=== PATIENT | male | born 1980 | race Caucasian/White ===

== ENCOUNTER 2024-02-02 13:29 | Inpatient (IN) ==
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
--- NOTE | 2024-02-02 14:37 | XRay Report ---
XR chest 1V portable CLINICAL HISTORY: weakness COMPARISON STUDY: Chest radiograph December 09, 2006. FINDINGS: Lung volumes are normal. Lungs are clear. There is no pneumothorax or pleural effusion. Car diac size is normal. Mediastinal contours are normal. There is no evidence for pulmonary edema. IMPRESSION: No acute cardiopulmonary findings. ACT 112: Negative or not required by law. Electronically signed by: Alban Dickey M.D. 02/02/2024 2:36 PM
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
[2024-02-02] MEDS: SODIUM CHLORIDE 0.9% 1,000 ML IV SCH (14:44)
[2024-02-02 14:54] LABS: Basophils # (auto) 0.04 K/uL (0.00-0.20); Basophils % (auto) 0.5 %; Eosinophils # (auto) 0.25 K/uL (0.00-0.50); Eosinophils % (auto) 2.9 %; Hemoglobin 14.7 g/dl (14.0-18.0); Immature Granulocytes # (auto) 0.02 K/uL (0.01-0.20); Immature Granulocytes % (auto) 0.2 %; Lymphocytes # (auto) 0.99 K/uL (1.20-3.40); Lymphocytes % (auto) 11.3 %; Mean Corpuscular Hemoglobin 30.9 pg (25.0-34.0); Mean Corpuscular Hgb Conc 35.9 g/dL (32.0-36.0); Mean Corpuscular Volume 86.3 fL (80.0-100.0); Mean Platelet Volume 9.5 fL (9.4-12.4); Monocytes # (auto) 0.63 K/uL (0.11-0.59); Monocytes % (auto) 7.2 %; Neutrophils # (auto) 6.84 K/uL (1.40-6.50); Neutrophils % (auto) 77.9 %; Platelet Count 244 K/uL (130-400); RDW Coefficient of Variation 12.2 % (11.5-14.5); RDW Standard Deviation 38.4 fL (36.4-46.3); Red Blood Count 4.75 M/uL (4.70-6.10); White Blood Count 8.77 K/ul (4.8-10.8)
[2024-02-02 15:12] LABS: Albumin Globulin Ratio 1.7 (0.9-2); Albumin Level 4.3 gm/dl (3.4-5.0); BUN Creatinine Ratio 23.8 (10-20); Bilirubin,Total 0.6 mg/dl (0.2-1.0); Calcium 9.1 mg/dl (8.6-10.3); Creatinine Clr Calc Pharmacy 120.4 ml/min; Est GFR (Non-African American) 107.9 ml/min; Globulin 2.5 gm/dl (2.5-4.0); Total Protein 6.8 gm/dl (6.0-8.3)
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
[2024-02-02 15:25] LABS: Troponin I High Sensitivity 61.4 pg/ml (0-20)
[2024-02-02 15:27] LABS: Thyroid Stimulating Hormone 1.199 uIu/ml (0.300-4.500)
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
[2024-02-02] MEDS: LACTATED RINGER'S 1,000 ML IV SCH (17:31)
[2024-02-02] MEDS: MoRPHine SULFATE 4 MG/ML 1 ML CARP\\VIAL IV STA (17:31)
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
--- OUTSIDE RECORDS SUMMARY | 2024-02-02 18:00 | External Medical Summary | Summary of Care ---
Author Name Unknown Organization [facility] Address [address] [place] [address] Phone [phone] Care Team Providers Care Glass Cut Off Tender Name Role Phone JuanisHank Stephanie LORENZO Primary Care Provider [phone] Encounter Details Date Type Department Care Team (Late st Contact Info) Description 01/03/2024 Orders Only Outcomes Research Department [address] [place] [address] Catarina Woods [employer] Research Other*[id number] Allergies No known active allergiesdocumented as of this encounter (statuses as of 01/03/2024) Medications Medication Sig Dispensed Refills Start Date End Date Status Fluticasone Propionate 50 MCG/ACT Nasal SuspensionIndications :Acute URI,Suspected COVID-19 virus infection,Dysphagia, unspecified type,Gastroesophageal reflux disease without esophagitis Administer 2 Sprays into each nostril daily. 1 Each 0 08/19/2021 Active Loratadine 10 MG Oral Tablet Take 1 Tablet by mouth in the morning. 0 Active documented as of this encounter (statuses as of 01/03/2024) Active Problems Problem Noted Date Diagnosed Date Pilonidal cyst 07/27/2012 Migraine with aura, intractable 01/12/2006 Congenital aortic valve insufficiency 04/25/2003 BE prophylaxis required 04/25/2003 Whmfh-Rcnfuednz-Kqsbi syndrome 04/25/2003 documented as of this encounter (statuses as of 01/03/2024) Immunizations Name Administration Dates Next Due HEP [...] on file documented as of this encounter Plan of Treatment Upcoming Encounters Date Type Department Care Team (Latest Contact Info) Description 02/16/2024 8:00 AM EDT Hospital Encounter ENDO [facility], Endoscopy Room [facility] [address] [phone] Roberta Craig MD [address] [address] 02/16/2024 8:00 AM EDT - 02/16/2024 8:30 AM EDT Surgery ENDO [facility], Endoscopy Room [facility] [address] [phone] Roberta Craig MD [address] [address] COLONOSCOPY FLEXIBLE PROXIMAL DIAGNOSTIC 07/28/2024 8:30 AM EDT Cardiac Studies Cardiac Studies, [facility] [address] [address] Scheduled Orders Name Type Priority Associated Diagnoses Orde r Schedule MYCODE SUBSEQUENT ADULT Lab Routine [employer] Research Other*[id number] Every 6 Months for 2 Occurrences starting 01/03/2024 until 01/22/2025 Scheduled Procedures Name Priority Associated Diagnoses Date/Ti me COLONOSCOPY FLEXIBLE PROXIMAL DIAGNOSTIC Recall Special screening for malignant neoplasms, colon 02/16/2024 8:00 AM EDT Health Maintenance Due Date Last Done Comments HIV Screening 1993 Hepatitis C Screening 1996 Diabetes Screening 09/18/2022 09/18/2019, 04/08/2009 Cologuard 2023 Colonoscopy 2023 Colorectal Cancer Screening 2023 Fecal Occult Blood Test 2023 Sigmoidoscopy 2023 COVID-19 Vaccine ( season) 2023 Influenza Vaccine (FLU shot) (#1) 2023 [...] Not on filedocumented as of this encounter Visit Diagnoses Diagnosis [employer] Research Other*[id number] Special screening for malignant neoplasms, colon documented in this encounter Care Teams Glass Cut Off Tender Relationship Specialty Start Date End Date Hank Olivarez DO [address] [place] [address] PCP - General Family Medicine 1/18/17 documented as of this encounter
--- OUTSIDE RECORDS SUMMARY | 2024-02-02 18:00 | External Medical Summary | Summary of Care ---
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 Bicuspid aortic valve Procedures ECHO, COMPLETE (2D), TRANS-THORACIC Jose Alfredo Francois DO [address] [place] [address] Referral ID Status Reason Start Date Expiration Date Visits Requested Visits Authorized [id number] Pending Review Precert 03/15/[phone] Reason for Visit * Reason Comments Follow Up * Evaluate & Treat - Unlimited Visits (Within 30 days (routine)) - Pending Review Specialty Diagnoses / Procedures Referred By Contact Referred To Contact Cardiovascular Medicine / Cardiology Diagnoses 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 Hank Olivarez DO [address] [facility] [place] [address] Referral ID Status Reason Start Date Expiration Date Visits Requested Visits Authorized [id number] Pending Review Specialty Services Required 3 [phone] Encounter Details Date Type Department Care Team (Late st Contact Info) Description 09/14/2023 8:30 AM EST Office Visit Cardiology, [facility] [address] [place] [address] Jose Alfredo Francois DO [address] [place] [address] Congenital aortic valve insufficiency*; Ozmmt-Ifjmaxtni-Idllb syndrome; Bicuspid aortic valve Allergies No known active allergiesdocumented as of this encounter (statuses as of 09/14/2023) Medications Medication Sig Dispensed Refills Start Date End Date Status Fluticasone Propionate 50 MCG/ACT Nasal SuspensionIndications :Acute URI,Suspected COVID-19 virus infection,Dysphagia, unspecified type,Gastroesophageal reflux disease without esophagitis Administer 2 Sprays into each nostril daily. 1 Each 0 08/19/2021 Active Loratadine 10 MG Oral Tablet Take 1 Tablet by mouth in the morning. 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 documented as of this encounter (statuses as of 09/14/2023) Immunizations Name Administration Dates Next Due HEP [...] Sign Reading Time Taken Comments Blood Pressure 98/64 09/14/2023 8:30 AM EST Pulse - - Temperature - - Respiratory Rate 16 09/14/2023 8:30 AM EST Oxygen Saturation - - Inhaled Oxygen Concentration - - Weight 87.5 kg (193 lb) 09/14/2023 8:30 AM EST Height - - Body Mass Index 27.69 09/11/2023 1:21 PM EST documented in this encounter Progress Notes * Jose Alfredo Francois, DO - 09/14/2023 8:53 AM EST Cardiology Outpatient Follow-up Alban Mcneill is a 43 year old male who is seen for follow-up of valvular heart disease. HPI: This is a 43-year-old male patient with history of a congenital bicuspid aortic valve with aortic insufficiency. He also has a rate-related EKG that shows Lxqyl-Qkwthhzox-Sqdsm although he has not had a history of any significant arrhythmias. Returned today for follow-up. In general things are going well. He denies dizziness or lightheadedness. He has had no chest pain or heart palpitations. No progressive shortness of breath or orthopnea. Past Medical History: Diagnosis Date Congenital aortic valve insufficiency need BE prophylaxsis, bicupsid aortic valve, AI and Varicella without complication age 4 Blysl-Onpthnpdp-Vwndq syndrome life long given a medical deferment and not permitted to enlist Patient Active Problem List Diagnosis Code Congenital aortic valve insufficiency Q23.1 BE prophylaxis required Z23 Yfgvw-Wofiffffv-Oissa syndrome I45.6 Migraine with aura, intractable G43.119 Pilonidal cyst L05.91 Past Surgical History: Procedure Laterality Date ECHOCARDIOLOGY UNSPEC PROC 05/02/2006 bicupsid aortic valve, 3+ AI, 1+ , no LVH EGD, FLEXIBLE, DIAGNOSTIC 09/25/2021 erosive esophagitis, repeat 8 wks / ESOPHAGOGASTRODUODENOSCOPY (EGD), FLEXIBLE, TRANSORAL, DIAGNOSTIC performed by Clotilde Foster DO at END[facility]COPY [facility] EGD, FLEXIBLE, DIAGNOSTIC 11/27/2021 healed esophagitis / ESOPHAGOGASTRODUODENOSCOPY (EGD), FLEXIBLE, TRANSORAL, DIAGNOSTIC performed byClotilde Foster DO at [facility]COPY [facility] STRESS ECHO (EXERCISE) 07/12/2007 normal response to exercise, EF 65% Family History Problem Relation Age of Onset No Past Hx Mother No Past Hx Father Arthritis Grandmother (Maternal) Diabetes Grandmother (Maternal) Heart Disorder Grandfather (Paternal) Arthritis Grandfather (Maternal) Cancer Grandfather (Maternal) leukemia No Past Hx Sister No Past Hx Sister No Past Hx Brother No Past Hx Son Social History Tobacco Use Smoking status: Never Smokeless tobacco: Never Vaping Use Vaping Use: Never used Substance Use Topics Alcohol use: Yes Comment: rare Drug use: No Review of patient's allergies indicates: No Known Allergies Current Outpatient Medications Medication Sig Dispense Refill Fluticasone Propionate 50 MCG/ACT Nasal Suspension Administer 2 Sprays into each nostril daily. 1 Each 0 Loratadine 10 MG Oral Tablet Take 1 Tablet by mouth in the morning. No current facility-administered medications for this visit. ROS: Review of Systems: See HPI for pertinent positives. All other review of systems is negative. PHYSICAL EXAMINATION BP 98/64 | Resp 16 | Wt 87.5 kg (193 lb) | BMI 27.69 kg/m | BSA 2.08 m Body mass index is 27.69 kg/m. General: no acute distress and stated age Head: normocephalic, no masses, lesions, tenderness or abnormalities Eyes: conjunctiva are pink and non-injected, sclera clear Neck: supple, no adenopathy, no bruits, normal jugular venous pulse, no hepatojugular reflux Chest: normal shape and normal respiratory effort Lungs: clear to auscultation and percussion Cardiac Exam: - regular rate & rhythm, diastolic heart murmur - normal S1, normal S2 Pulses: 2(+) throughout Abdomen: abdomen soft, non-tender, no abnormal masses and no hepatosplenomegaly Musculoskeletal: no gait disturbance, no joint inflammation, no deforming arthritis Extremities: no edema and no cyanosis Neuro: grossly normal exam Laboratory Data Review: EKG today reveals a sinus rhythm and is within normal limits Impression: 1. Bicuspid aortic valve with moderate to severe aortic insufficiency unchanged from the prior study July, 2. History of intermittent Thqce-Shhyqcccs-Yrnmc on previous EKGs without significant tachycardia or arrhythmias Plan: The patient is doing well clinically. At this point we will see him on an annual or as-needed basis. Prior to his next visit however, I have asked that he have a follow-up echocardiogram to evaluate his aortic insufficiency. This chart was completed in part utilizing [employer] Speech Voice Recognition Software. Grammatical errors, random word insertions, prounoun errors, and incomplete sentences are an occasional consequence of this system due to software limitations, ambient noise, and hardware issues. Any formal questions or concerns about the content, text, or information contained within the body of this dictation should be directly addressed to the provider for clarification. I spent a total of 30-39 minutes (exact time 36 mins) on the date of service in preparation, delivery, and documentation of the care provided to Alban Mcneill excluding any time spent in the performance of separately billed services. Jose Alfredo Francois DO [place] [address] 09/14/2023 documented in this encounter Procedure Notes * Rodriguez Jaimes MD - 09/14/2023 8:38 AM ESTAssociated Order(s): EKG COMPLETE (TRACING AND INTERP) REASON FOR STUDY: WPW; congenital aortic insuff CONCLUSIONS: Normal sinus rhythm Normal ECG When compared with ECG of 16-DEC-2021 09:28, No significant change was found Ventricular Rate: 70 Atrial Rate: 70 MS Interval: 160 QRS Duration: 90 QT/QTc: 372/401 ms P-R-T [place]: 74 : 74 : 46 degrees documented in this encounter Nursing Notes * Govind Duque RN - 09/14/2023 8:29 AM EST Examination Room: room 16 Name: Alban Mcneill Date of : (1980). Reason for Visit: for follow up Interim Hospitalization(s): denies Problems/Concerns: denies Chest Pain/SOB: denies [facility] Discussed: Not applicable [facility] is a way you can talk to your provider online through e-mail. Would you like to sign up? I can activate it for you? NO INTERNET ACCESS Patient was instructed to not get up on the exam table until directed and assisted by their provider; patient is to remain seated in the chair/ wheelchair/ exam table for fall prevention and safety reasons. Patient is aware to have assistance to step down off exam table with personnel. Patient voiced full comprehension of instructions. documented in this encounter Plan of Treatment Upcoming Encounters Date Type Department Care Team (Late st Contact Info) Description 07/28/2024 8:30 AM EDT Cardiac Studies Cardiac Studies, [address] [place] [address] Scheduled Orders Name Type Priority Associated Diagnoses Orde r Schedule ECHO, COMPLETE (2D), TRANS-THORACIC Echocardiology Routine Rhrtw-Zetkwezxx-Xwvmw syndrome Congenital aortic valve insufficiency Bicuspid aortic valve Expected: 03/15/2024, Expires: 09/14/2024 Scheduled Procedures Name Priority Associated Diagnoses Date/Ti me COLONOSCOPY FLEXIBLE PROXIMA L DIAGNOSTIC Recall Special screening for malignant neoplasms, colon Health Maintenance Due Date Last Done Comments [...] Procedure Name Priority Date/Time Associated Diagnosis Comments MS ECG ROUTINE ECG W/LEAST 12 LDS W/I&R Routine 09/14/2023 8:38 AM EST Inilt-Znghfnypi-Xlpbs syndrome Congenital aortic valve insufficiency documented in this encounter Results * EKG COMPLETE (TRACING AND INTERP) (09/14/2023 8:38 AM EST) 09/14/2023 8:38 AM EST Narrative Procedure Note Rodriguez Jaimes MD - 09/14/2023 8:38 AM EST REASON FOR STUDY: WPW; congenital aortic insuff CONCLUSIONS: Normal sinus rhythm Normal ECG When compared with ECG of 16-DEC-2021 09:28, No significant change was found Ventricular Rate: 70 Atrial Rate: 70 MS Interval: 160 QRS Duration: 90 QT/QTc: 372/401 ms P-R-T [place]: 74 : 74 : 46 degrees Jose Alfredo Francois DO EKG [facility] documented in this encounter Visit Diagnoses Diagnosis Congenital aortic valve insufficiency- Primary Congenital insufficiency of aortic valve Ystpp-Iktqtknix-Yjmqa syndrome Anomalous atrioventricular excitation Bicuspid aortic valve Congenital insufficiency of aortic valve documented in this encounter Care Teams Maintenance Chief Relationship Specialty Start Date End Date Hank Olivarez DO [address] [facility] [place] [address] PCP - General Family Medicine 10/14/16 documented as of this encounter"
--- OUTSIDE RECORDS SUMMARY | 2024-02-02 18:00 | External Medical Summary | Summary of Care ---
Author Name Unknown Organization [facility] Address [address] [place] [address] Phone [phone] Care Team Providers Care Forklift Picker Name Role Phone Juanis Hank Stephanie LORENZO Primary Care Provider [phone] Encounter Details Date Type Department Care Team (Late st Contact Info) Description 09/06/2023 Telephone OR [facility], Operating Room [facility] [address] [place] [phone] Kendy Ghosh MD [address] [place] [address] Allergies No known active allergiesdocumented as of this encounter (statuses as of 12/06/2023) Medications Medication Sig Dispensed Refills Start Date End Date Status Fluticasone Propionate 50 MCG/ACT Nasal SuspensionIndications :Acute URI,Suspected COVID-19 virus infection,Dysphagia, unspecified type,Gastroesophageal reflux disease without esophagitis Administer 2 Sprays into each nostril daily. 1 Each 0 08/19/2021 Active Loratadine 10 MG Oral Tablet Take 1 Tablet by mouth in the morning. 0 Active documented as of this encounter (statuses as of 12/06/2023) Active Problems Problem Noted Date Diagnosed Date Pilonidal cyst 07/27/2012 Migraine with aura, intractable 01/12/2006 Congenital aortic valve insufficiency 04/25/2003 BE prophylaxis required 04/25/2003 Tvqsa-Lhajehoon-Peczp syndrome 04/25/2003 documented as of this encounter (statuses as of 12/06/2023) Immunizations Name Administration Dates Next Due HEP [...] money to buy more. Never true 12/31/19 Within the past 12 months, t he [...] on file documented as of this encounter Miscellaneous Notes * Telephone Encounter - Cecilia Romeo RN - 09/06/2023 7:39 AM EST This patient is scheduled for colonoscopy on 09-07-[address] Ghosh patient will need followup with cardiology and repeat echo prior to procedure .patient called and left message on Opt[employer]that the colonoscopy for tomorrow will need to be rescheduled until after cardiology clearance and echo. Patient given number to return call to reschedule /GI schedulers made aware documented in this encounter Plan of Treatment Upcoming Encounters Date Type Department Care Team (Late st Contact Info) Description 07/28/2024 8:30 AM EDT Cardiac Studies Cardiac Studies, [address] [place] [address] Scheduled Procedures Name Priority Associated Diagnoses Date/Ti me COLONOSCOPY FLEXIBLE PROXIMA L DIAGNOSTIC Recall Special screening for malignant neoplasms, colon Health Maintenance Due Date Last Done Comments HIV Screening 1993 Hepatitis C Screening 1996 Diabetes Screening 09/18/2022 09/18/2019, 04/08/2009 Cologuard 2023 Colonoscopy 2023 Colorectal Cancer Screening 2023 Fecal Occult Blood Test 2023 Sigmoidoscopy 2023 COVID-19 Vaccine (1 - 2022- season) 2023 Influenza Vaccine (FLU shot) (#1) 2023 06/15/2012 Depression Screening 12/31/2023 12/30/2022 Lipid Panel 09/18/2024 09/18/2019, 04/08/2009 DTaP,Tdap,and Td Vaccines (7 - Td or Tdap) 04/23/2033 04/23/2023, 03/11/2011, 06/02/2003, Additional history exists Hepatitis B Completed 06/15/2012, 0509/1994, 07/16/1993 GARDASIL-HPV IMMUNIZATION SERIES Aged Out No [...] Not on filedocumented as of this encounter Care Teams Forklift Picker Relationship Specialty Start Date End Date Hank Olivarez DO [address] [place], [place] [address] PCP - General Family Medicine 10/14/16 documented as of this encounter
--- OUTSIDE RECORDS SUMMARY | 2024-02-02 18:00 | External Medical Summary | Summary of Care ---
Author Name Unknown Organization [facility] Address [address] [place] [address] Phone [phone] Care Team Providers Care Payroll Representative Name Role Phone Hank Olivarez DO Primary Care Provider [phone] Reason for Referral * Precert (Within 10 days (routine)) - Pending Review Specialty Diagnoses / Procedures Referred By Contac t Referred To Contact Cardiac Studies Diagnoses Bdjjw-Mzuteduow-Mwytv syndrome Congenital aortic valve insufficiency Bicuspid aortic valve Procedures ECHO, COMPLETE (2D), TRANS-THORACIC Jose Alfredo Francois DO [address] [place] [address] Referral ID Status Reason Start Date Expiration Date Visits Requested Visits Authorized [id number] Pending Review Precert 03/15/[phone] Reason for Visit * Reason Comments Follow Up * Evaluate & Treat - Unlimited Visits (Within 30 days (routine)) - Pending Review Specialty Diagnoses / Procedures Referred By Contact Referred To Contact Cardiovascular Medicine / Cardiology Diagnoses Congenital aortic valve insufficiency Ddqpt-Osclpvsfv-Nmojd syndrome Hank Olivarez DO [address] [facility] [place] [address] Referral ID Status Reason Start Date Expiration Date Visits Requested Visits Authorized [id number] Pending Review Specialty Services Required 3 [phone] Encounter Details Date Type Department Care Team (Late st Contact Info) Description 09/14/2023 8:30 AM EST Office Visit Cardiology, [facility] [address] [place] [address] Jose Alfredo Francois DO [address] [place] [address] Congenital aortic valve insufficiency*; Gtfsq-Inxarotjk-Pedfu syndrome; Bicuspid aortic valve Allergies No known [...] valve insufficiency 04/25/2003 BE prophylaxis required 04/25/2003 Tfusa-Soimjzjnw-Hvujt syndrome 04/25/2003 documented as of this encounter [...] also has a rate-related EKG that shows Iencw-Sqcslsoge-Etwfl although he has not had a history [...] AI and Varicella without complication age 4 Rweyn-Mlrgtntps-Mkztg syndrome life long given a medical deferment and not permitted to enlist Patient Active Problem List Diagnosis Code Congenital aortic valve insufficiency Q23.1 BE prophylaxis required Z23 Rjgjy-Sffpoabkm-Rjitp syndrome I45.6 Migraine with aura, intractable G43.119 Pilonidal cyst L05.91 Past Surgical History: Procedure Laterality Date ECHOCARDIOLOGY UNSPEC PROC 05/02/2006 bicupsid aortic valve, 3+ AI, 1+ , no LVH EGD, FLEXIBLE, DIAGNOSTIC 09/25/2021 erosive esophagitis, repeat 8 wks / ESOPHAGOGASTRODUODENOSCOPY (EGD), FLEXIBLE, TRANSORAL, DIAGNOSTIC performed by Clotilde Foster DO at ENDOSCOPY [facility] EGD, FLEXIBLE, DIAGNOSTIC 11/27/2021 healed esophagitis / ESOPHAGOGASTRODUODENOSCOPY (EGD), FLEXIBLE, TRANSORAL, DIAGNOSTIC performed byClotilde Foster DO at ENDOSCOPY [facility] STRESS ECHO (EXERCISE) 07/12/2007 normal response to [...] prior study July, 2. History of intermittent Axzvd-Rvuqodgbx-Avztj on previous EKGs without significant tachycardia or arrhythmias Plan: The patient is doing well clinically. At this point we will see him on an annual or as-needed basis. Prior to his next visit however, I have asked that he have a follow-up echocardiogram to evaluate his aortic insufficiency. This chart was completed in part utilizing [employer] Speech Voice Recognition Software. Grammatical errors, random [...] separately billed services. Jose Alfredo Francois DO [address]iology[address] [address] 09/14/2023 documented in this encounter Nursing Notes * Govind Duque, NIKIA - 09/14/2023 8:29 AM EST Examination Room: [...] 8:30 AM EDT Cardiac Studies Cardiac Studies, [facility] [address] [facility] [place] [address] Scheduled Orders Name Type Priority Associated Diagnoses Orde r Schedule EKG COMPLETE (TRACING AND INTERP) EKG Routine Vwphg-Eohycbuoc-Qbshl syndrome Congenital aortic valve insufficiency Ordered: 09/14/2023 ECHO, COMPLETE (2D), TRANS-THORACIC Echocardiology Routine Ddewr-Adwfelorx-Ripdg syndrome Congenital aortic valve insufficiency Bicuspid aortic [...] as of this encounter Visit Diagnoses Diagnosis Congenital aortic valve insufficiency- Primary Congenital insufficiency of aortic valve Nizwy-Vftxyjgzu-Dkyrp syndrome Anomalous atrioventricular excitation Bicuspid aortic valve Congenital insufficiency of aortic valve documented in this encounter Care Teams Payroll Representative Relationship Specialty Start Date End Date Hank Olivarez DO [address] [place] [address] PCP - General Family Medicine 10/14/16 documented as of this encounter"
[2024-02-02] MEDS ORDERED: FLUTICASONE PROPIONATE NA SPR 16 GM BTL NAE PRN (18:51)
[2024-02-02] MEDS ORDERED: POLYETHYLENE (MIRALAX) 17 GM PACK PO PRN (18:51)
[2024-02-02] MEDS ORDERED: ACETAMINOPHEN 325 MG TAB PO PRN (18:51)
[2024-02-02] MEDS: HEPARIN SOD 5,000 UNIT/0.5 ML VIAL SQ SCH (21:01)
[2024-02-03 04:52] LABS: Hematocrit (blood only) 38.9 % (42.0-52.0); Hemoglobin 13.5 g/dl (14.0-18.0); Mean Corpuscular Hemoglobin 30.7 pg (25.0-34.0); Mean Corpuscular Hgb Conc 34.7 g/dL (32.0-36.0); Mean Corpuscular Volume 88.4 fL (80.0-100.0); Mean Platelet Volume 9.6 fL (9.4-12.4); Platelet Count 207 K/uL (130-400); RDW Coefficient of Variation 12.4 % (11.5-14.5); RDW Standard Deviation 40.2 fL (36.4-46.3); White Blood Count 6.57 K/ul (4.8-10.8)
[2024-02-03 05:04] LABS: Albumin Globulin Ratio 1.6 (0.9-2); Albumin Level 3.6 gm/dl (3.4-5.0); BUN Creatinine Ratio 18.7 (10-20); Bilirubin,Total 0.7 mg/dl (0.2-1.0); Calcium 8.2 mg/dl (8.6-10.3); Creatinine Clr Calc Pharmacy 128.4 ml/min; Est GFR (African American) 128.4 ml/min; Est GFR (Non-African American) 110.8 ml/min; Globulin 2.2 gm/dl (2.5-4.0); Potassium 3.9 mmol/L (3.5-5.1); Total Protein 5.8 gm/dl (6.0-8.3)
[2024-02-03 05:13] LABS: Troponin I High Sensitivity 40.9 pg/ml (0-20)
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
[2024-02-03 11:01] VITALS: RESP 16; TEMP 98.2
[2024-02-03 14:32] VITALS: BP 133/71; PULSE 69; O2SAT 96
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
--- NOTE | 2024-02-04 21:32 | Electrocardiogram Report ---
Test Reason : Blood Pressure : / mmHG Vent. Rate : 079 BPM Atrial Rate : 079 BPM P-R Int : 160 ms QRS Dur : 082 ms QT Int : 348 ms P-R-T Axes : 056 -15 036 degrees QTc Int : 399 ms Normal sinus rhythm Septal infarct , age undetermined Abnormal ECG When compared with ECG of 02-JUN-2003 14:57, [place] interval has increased Questionable change in QRS duration Septal infarct is now Present Borderline criteria for Inferior infarct are no longer Present Confirmed by Noble Lira ([id number]) on 02/04/2024 9:32:04 PM Referred By: Confirmed By:Noble Lira
--- NOTE | 2024-02-04 21:33 | Electrocardiogram Report ---
Test Reason : Blood Pressure : / mmHG Vent. Rate : 059 BPM Atrial Rate : 059 BPM P-R Int : 170 ms QRS Dur : 086 ms QT Int : 394 ms P-R-T Axes : 058 -10 023 degrees QTc Int : 390 ms Sinus bradycardia Septal infarct (cited on or before 02-FEB-2024) Abnormal ECG When compared with ECG of 02-FEB-2024 13:36, No significant change was found Confirmed by Noble Lira ([id number]) on 02/04/2024 9:33:13 PM Referred By: REFERRED SELF Confirmed By:Noble Lira
== END 2024-02-03 14:33 | disposition home or self-care (01) | DRG 923 ==
LOC: ED 13:29 → SUATTDRO 16:23 → EDINP 16:23
DX: W85.XXXA Exposure to electric transmission lines, initial encounter; Y93.89 Activity, other specified; Q23.1 Congenital insufficiency of aortic valve; Y92.009 Unspecified place in unspecified non-institutional (private) residence as the place of occurrence of the external cause; I45.6 Pre-excitation syndrome; R79.89 Other specified abnormal findings of blood chemistry; T75.4XXA Electrocution, initial encounter; W18.39XA Other fall on same level, initial encounter; R07.9 Chest pain, unspecified; Y99.2 Volunteer activity; M25.522 Pain in left elbow; R00.2 Palpitations